=== PATIENT | female | born 1965 | race Caucasian/White ===

== ENCOUNTER 2016-11-08 20:54 | Emergency (ER) | payer MEDICAID ==
[2016-11-08 21:04] VITALS: BP 130/82
--- NOTE | 2016-11-08 21:24 | ERNOTE ---
Lower Extremity HPI - Narrative Date of Service: 11/08/16 - General Lower Extremities Pain: ankle: left Time Seen by Provider: 11/08/16 21:11 Source: patient, RN notes reviewed Exam Limitations: no limitations - Immun/Allergies/Home Medications Allergies/Adverse Reactions: Allergies Allergy/AdvReac Type Severity Reaction Status Date / Time ciprofloxacin [From Cipro] Allergy Verified 11/08/16 21:04 ciprofloxacin HCl Allergy Verified 11/08/16 21:04 [From Cipro] sulfamethoxazole Allergy Verified 11/08/16 21:04 [From Bactrim] trimethoprim [From Bactrim] Allergy Verified 11/08/16 21:04 Home Medications: HOME MEDICATIONS Amoxicillin Trihydrate [Amoxil] 500 mg PO Q8H 11/02/12 [Last Taken 11/02/12] Celecoxib [Celebrex] mg PO 11/02/12 [Last Taken Unknown] Desvenlafaxine Succinate [Pristiq] mg PO 11/02/12 [Last Taken Unknown] Hydrocodone/Acetaminophen [Hydrocodon-Acetaminoph 7.5-325] 11/02/12 [Last Taken Unknown] Ketorolac Tromethamine [Toradol] 10 mg PO QID PRN 11/02/12 [Last Taken Unknown] LORazepam [Ativan] mg PO 11/02/12 [Last Taken Unknown] Mirtazapine [Remeron] mg PO 11/02/12 [Last Taken Unknown] Omeprazole [Prilosec Generic] mg PO 11/02/12 [Last Taken Unknown] Solifenacin Succinate [Vesicare] mg PO 11/02/12 [Last Taken Unknown] oxyCODONE HCL/ACETAMINOPHEN [Percocet 5 MG/325 MG] 1 tab PO 11/02/12 [Last Taken Unknown] - History of Present Illness Narrative: 51 y/o female ambulatory to the ED for pain due to a left ankle fracture. This occurred on 11/05/16. She was seen at [facility] and told to follow up with orthopedics. She contacted orthopedics here but could not be seen because she has [place] Medicaid. She is supposed to be wearing a boot, but reports it is too heavy and she cannot tolerate it. She was prescribed oxycodone for pain. She reports it is not working. She has only been taking 1 tablet at a time. She is afraid to take more because she does not like to take medication, however she admits to doing "street drugs" a couple of days ago. While she was high, she felt like she had flea eggs on her ankle and scratched it until she developed several abrasions. Date (Duration): 11/05/16 Subsequent Symptoms: Denies: sensory loss, numbness, motor loss Prior Treament: Denies: recently seen Review of Systems - Review of Systems Constitutional: Present: no symptoms reported EYE: Present: no symptoms reported ENT: Present: no symptoms reported Respiratory: Present: no symptoms reported Cardiology: Present: no symptoms reported Gastrointestinal/Abdominal: Present: no symptoms reported Genitourinary: Present: no symptoms reported Musculoskeletal: Present: joint pain, joint swelling Skin: Present: lesions. Absent: lumps, change in color Neurological: Absent: weakness, numbness, tingling Endocrine: Present: no symptoms reported Hematologic/Lymphatic: Absent: easy bruising, easy bleeding Psych: Present: emotional problems - Patient's Past Medical History Patient History - Medical: No pertinent hx Patient History - Cardiac/Respiratory: No pertinent hx Patient History - Cancer: No Hx of Cancer Patient History - Surgical Procedures: Noncontributory Patient History - Other: None - Social History Living Situations: home Psych History: No pertinent hx Smoking Status: Current every day smoker Alcohol Use: none Drug Use: none Physical Exam - Physical Exam General Appearance: Present: alert, anxious, thin, other - Disheveled, appears to be under the influence of something Respiratory: Present: no respiratory distress, no accessory muscle use Cardiovascular/Chest: Present: normal peripheral pulses Peripheral Pulses: N=norm/S=strong/W=weak/B=bound/A=absent: Dorsalis-pedis (R): Strong, Dorsalis-pedis (L): Strong Extremity Exam: Present: decreased range of motion - Left ankle, joint swelling - Left ankle. Absent: joint redness Neurological Exam: Present: alert, oriented, no motor/sensory deficits. Absent : normal mood/affect Skin Exam: Present: normal color, warm/dry, other - Ecchymosis to left ankle and foot, abrasions to ankle anteriorly from scratching, numerous small wounds on face and extremities ED Progress - Vital Signs Patient's Vital Signs:: I have reviewed the patient's vital signs. Vital Signs: Vital Signs 11/08/16 21:00 Temperature 36.8 C Pulse Rate 109 H Respiratory 12 Rate Blood Pressure 130/82 O2 Sat by Pulse 97 Oximetry - Progress/Reassessment Chief Complaint: Ankle Injury/ Pain Progress:: Unchanged Procedures Pre-Proc Neuro Vasc Exam: normal Hand-Made Type: ocl Splint: sugar-tong Alignment good: Yes Splint applied by: Nurse Post-Proc Neuro Vasc Exam: normal Complications: Pt frank procedure well Plan - Plan Plan: OCL splint applied to ankle as patient should be able to tolerate this better than a cam boot. Instructed to take her current pain medication as prescribed and to find an ortho in [place] for follow-up as her medicaid will likely only be accepted there. Departure Clinical Impression: Ankle fracture, left Qualifiers: Encounter type: subsequent encounter Fracture type: closed Fracture healing: with routine healing Qualified Code(s): S82.892D - Other fracture of left lower leg, subsequent encounter for closed fracture with routine healing - Departure Disposition: Home Follow Up Needed Condition: Stable Instructions: Ankle Fracture, [id number] Additional Instructions: Contact orthopedics in [place] tomorrow to arrange follow up Continue your current pain medication as prescribed Leave splint in place until you are seen by orthopedics
== END 2016-11-08 21:35 | disposition home or self-care (01) ==
LOC: ER 20:54
PROC: 2W3TX1Z Immobilization of Left Foot using Splint (ICD-10-PCS; principal; 2016-11-08)
DX: M84.472D Pathological fracture, left ankle, subsequent encounter for fracture with routine healing (principal)

== ENCOUNTER 2016-12-15 13:26 | Emergency (ER) | payer MEDICAID ==
[2016-12-15 13:56] VITALS: BP 112/67
--- NOTE | 2016-12-15 15:08 | ERNOTE ---
Time Seen by Provider: 12/15/16 15:00 Stated Complaint: URI Presenting Symptoms:: cough Source: patient, family Exam Limitations: no limitations Immunizations: IMMUNIZATION HX Immunizations Up to Date Yes Allergies/Adverse Reactions: Allergies ciprofloxacin [From Cipro] Allergy (Verified 12/15/16 13:56) ciprofloxacin HCl [From Cipro] Allergy (Verified 12/15/16 13:56) sulfamethoxazole [From Bactrim] Allergy (Verified 12/15/16 13:56) trimethoprim [From Bactrim] Allergy (Verified 12/15/16 13:56) Home Medications: HOME MEDICATIONS Amoxicillin Trihydrate [Amoxil] 500 mg PO Q8H 11/02/12 [Last Taken 11/02/12] Celecoxib [Celebrex] mg PO 11/02/12 [Last Taken Unknown] Desvenlafaxine Succinate [Pristiq] mg PO 11/02/12 [Last Taken Unknown] Hydrocodone/Acetaminophen [Hydrocodon-Acetaminoph 7.5-325] 11/02/12 [Last Taken Unknown] Ketorolac Tromethamine [Toradol] 10 mg PO QID PRN 11/02/12 [Last Taken Unknown] LORazepam [Ativan] mg PO 11/02/12 [Last Taken Unknown] Mirtazapine [Remeron] mg PO 11/02/12 [Last Taken Unknown] Omeprazole [Prilosec Generic] mg PO 11/02/12 [Last Taken Unknown] Solifenacin Succinate [Vesicare] mg PO 11/02/12 [Last Taken Unknown] oxyCODONE HCL/ACETAMINOPHEN [Percocet 5 MG/325 MG] 1 tab PO 11/02/12 [Last Taken Unknown] Albuterol Sulfate 2.5 mg IH QID #30 vial.neb 12/15/16 [Last Taken Unknown] Benzonatate [Tessalon Perle] 100 mg PO TID #20 capsule 12/15/16 [Last Taken Unknown] Doxycycline Monohydrate 100 mg PO BID #20 tablet 12/15/16 [Last Taken Unknown] predniSONE [Deltasone] 20 mg PO BID #10 tablet 12/15/16 [Last Taken Unknown] - History of Present Ilness Narrative: Patient presents with a cough. Patient has chronic bronchitis with bronchospasm from her COPD and appears to be in a mild exacerbation Timing: constant Severity: moderate Frequency/Possible Cause: Reports: frequent episodes Modifying Factors - Worsens: Reports: other - smoking Associated Symptoms: Reports: cough, shortness of breath Review of Systems - Review of Systems Constitutional: Present: See HPI EYE: Present: no symptoms reported ENT: Present: no symptoms reported Respiratory: Present: See HPI Cardiology: Present: no symptoms reported Gastrointestinal/Abdominal: Present: no symptoms reported Genitourinary: Present: no symptoms reported Musculoskeletal: Present: no symptoms reported Skin: Present: no symptoms reported Neurological: Present: no symptoms reported Endocrine: Present: no symptoms reported Hematologic/Lymphatic: Present: no symptoms reported Psych: Present: no symptoms reported - Patient's Past Medical History Patient History - Cardiac/Respiratory: COPD Patient History - Cancer: No Hx of Cancer Patient History - Surgical Procedures: Noncontributory Patient History - Other: None - Social History Living Situations: home Abuse History: Hx -Substance Use Tx Psych History: No pertinent hx Smoking Status: Current every day smoker Have you smoked in the past 12 months: Yes Alcohol Use: none Drug Use: none - Immunizations Immunizations Up to Date: Yes Physical Exam - Physical Exam General Appearance: Present: wd/wn, alert, moderate distress Head Exam: Present: normal inspection Eye Exam: Normal inspection: bilateral, PERRL: bilateral Ears, Nose, Throat: Present: normal ENT inspection, H, normal pharynx Neck: Present: normal inspection, nontender Respiratory: Present: no accessory muscle use, chest nontender, crackles, wheezing Cardiovascular/Chest: Present: regular rate, rhythm, no murmur, normal peripheral pulses Gastrointestinal/Abdominal: Present: normal bowel sounds, nontender, nondistended, soft, no organomegaly Rectal Exam: Present: deferred Back Exam: Present: normal inspection, normal range of motion Extremity Exam: Present: normal inspection, non-tender, no edema, normal range of motion Neurological Exam: Present: alert, oriented, normal mood/affect Skin Exam: Present: normal color, warm/dry Lymphatic Exam: Present: no adenopathy ED Progress - Vital Signs Patient's Vital Signs:: I have reviewed the patient's vital signs. Vital Signs: Vital Signs 12/15/16 13:53 Temperature 37 C Pulse Rate 88 Respiratory 14 Rate Blood Pressure 112/67 O2 Sat by Pulse 99 Oximetry - Progress/Reassessment Chief Complaint: Cough Plan - Plan Plan: As the patient is going to continue to smoke I suspect her COPD is going to worsen. Patient be started on doxycycline, prednisone, albuterol nebulizer and Tessalon Perles for the cough. Patient understands she needs to find a family physician and agrees to try to do same. Departure - Departure Clinical Impression: COPD with acute bronchitis Disposition: Home self-care Condition: Good Instructions: Chronic Obstructive Pulmonary Disease, [id number], Acute Bronchitis, [id number] Prescriptions: Albuterol Sulfate 2.5 mg IH QID #30 vial.neb Benzonatate [Tessalon Perle] 100 mg PO TID #20 capsule Doxycycline Monohydrate 100 mg PO BID #20 tablet predniSONE [Deltasone] 20 mg PO BID #10 tablet
== END 2016-12-15 15:19 | disposition home or self-care (01) ==
LOC: ER 13:26
DX: J44.9 Chronic obstructive pulmonary disease, unspecified (principal); F17.200 Nicotine dependence, unspecified, uncomplicated

== ENCOUNTER 2016-12-23 14:00 | Emergency (ER) | payer MEDICAID ==
[2016-12-23 14:22] VITALS: BP 129/55
--- NOTE | 2016-12-23 17:32 | ERNOTE ---
Allergy Symptoms - ER Date of Service: 12/23/16 Presenting Symptoms: other - vomiting from doxycycline Time Seen by Provider: 12/23/16 17:26 Source: patient Exam Limitations: no limitations Immunizations: IMMUNIZATION HX Immunizations Up to Date Yes History of Influenza Vaccine No Hx Pneumococcal Vaccination No Allergies/Adverse Reactions: Allergies ciprofloxacin [From Cipro] Allergy (Verified 12/23/16 14:22) ciprofloxacin HCl [From Cipro] Allergy (Verified 12/23/16 14:22) sulfamethoxazole [From Bactrim] Allergy (Verified 12/23/16 14:22) trimethoprim [From Bactrim] Allergy (Verified 12/23/16 14:22) doxycycline Adverse Reaction (Verified 12/23/16 17:27) Vomiting Home Medications: HOME MEDICATIONS Amoxicillin Trihydrate [Amoxil] 500 mg PO Q8H 11/02/12 [Last Taken 11/02/12] Celecoxib [Celebrex] mg PO 11/02/12 [Last Taken Unknown] Desvenlafaxine Succinate [Pristiq] mg PO 11/02/12 [Last Taken Unknown] Hydrocodone/Acetaminophen [Hydrocodon-Acetaminoph 7.5-325] 11/02/12 [Last Taken Unknown] Ketorolac Tromethamine [Toradol] 10 mg PO QID PRN 11/02/12 [Last Taken Unknown] LORazepam [Ativan] mg PO 11/02/12 [Last Taken Unknown] Mirtazapine [Remeron] mg PO 11/02/12 [Last Taken Unknown] Omeprazole [Prilosec Generic] mg PO 11/02/12 [Last Taken Unknown] Solifenacin Succinate [Vesicare] mg PO 11/02/12 [Last Taken Unknown] oxyCODONE HCL/ACETAMINOPHEN [Percocet 5 MG/325 MG] 1 tab PO 11/02/12 [Last Taken Unknown] Albuterol Sulfate 2.5 mg IH QID #30 vial.neb 12/15/16 [Last Taken Unknown] Benzonatate [Tessalon Perle] 100 mg PO TID #20 capsule 12/15/16 [Last Taken Unknown] Doxycycline Monohydrate 100 mg PO BID #20 tablet 12/15/16 [Last Taken Unknown] predniSONE [Deltasone] 20 mg PO BID #10 tablet 12/15/16 [Last Taken Unknown] Azithromycin [Zithromax] 500 mg PO NOW #6 tab 12/23/16 [Last Taken Unknown] Fluticasone/Salmeterol [Advair 250-50 Diskus] 1 puff IH BID #1 inhaler 12/23/16 [Last Taken Unknown] Nicotine [Nicotine Patch] 21 mg TD DAILY #30 patch.td24 12/23/16 [Last Taken Unknown] - History of Present Illness Narrative: Started on Doxycycline for COPD exacerbation on 12/15/16. Notes she is having "violent vomiting" and stomach upset. She is requesting a different antibiotic. Continues to have productive, intermittent SOB. She has not yet established with a PCP, she has [place] Medicaid and voices frustration that no one in [facility] takes her insurance. She requests refill on her Advair which she has taken in the past. Also requesting Nicotine patches. Advised that she needs to establish with a PCP, she feels the Nicotine patch should be ordered, as we have advised her to stop smoking. Severity shortness of breath: Present: moderate Exposure: Present: antibiotic - doxycycline Review of Systems - Review of Systems Constitutional: Absent: fever, chills ENT: Present: ear pain - anita, nose congestion - intemittent, sore throat Respiratory: Present: shortness of breath - with exertion, cough, wheezing Gastrointestinal/Abdominal: Present: nausea, vomiting - with medication Skin: Absent: rash - Patient's Past Medical History Patient History - Medical: Arthritis Patient History - Cardiac/Respiratory: No pertinent hx Patient History - Cancer: No Hx of Cancer Patient History - Surgical Procedures: D & C, Orthopedic Patient History - Other: None LMP (females 10-50): Menopausal - Social History Living Situations: home Abuse History: Hx -Substance Use Tx Psych History: No pertinent hx Smoking Status: Current every day smoker Alcohol Use: none Drug Use: meth - Immunizations Immunizations Up to Date: Yes Hx Pneumococcal Vaccination: No History of Influenza Vaccine: No Physical Exam - Physical Exam General Appearance: Present: wd/wn, alert, no apparent distress Ears, Nose, Throat: Present: normal ENT inspection Respiratory: Present: no respiratory distress, rhonchi - mild, wheezing - mild scattered wheezing. Absent: rales Cardiovascular/Chest: Present: regular rate, rhythm Neurological Exam: Present: alert, oriented Skin Exam: Present: normal color, warm/dry ED Progress - Vital Signs Patient's Vital Signs:: I have reviewed the patient's vital signs. Vital Signs: Vital Signs 12/23/16 12/23/16 14:17 17:24 Temperature 36.9 C Pulse Rate 90 Respiratory 17 17 Rate Blood Pressure 129/55 O2 Sat by Pulse 97 97 Oximetry - Progress/Reassessment Chief Complaint: Allergic Reaction Plan - Plan Plan: Discussed that tx would be initiated with Advair and Nicotine patch today, but that it was essential that she establish care for refills and maintenance of her COPD. Departure Clinical Impression: COPD with acute bronchitis - Departure Disposition: Home self-care Condition: Good Instructions: Chronic Obstructive Pulmonary Disease, [id number] Additional Instructions: Decrease cigarette use gradually while using patch You must establish with a primary care doctor to help control your COPD and to refill medications Go to ER for any difficulty breathing Prescriptions: Azithromycin [Zithromax] 500 mg PO NOW #6 tab Fluticasone/Salmeterol [Advair 250-50 Diskus] 1 puff IH BID #1 inhaler Nicotine [Nicotine Patch] 21 mg TD DAILY #30 patch.[id number]
== END 2016-12-23 17:51 | disposition home or self-care (01) ==
LOC: ER 14:00
DX: J44.9 Chronic obstructive pulmonary disease, unspecified (principal); F17.200 Nicotine dependence, unspecified, uncomplicated